=== PATIENT | female | born 1965 | race Caucasian/White ===

== ENCOUNTER 2020-04-28 10:12 | Day surgery (SDC) | payer BC, OTHER ==
[~2020-04-28] VITALS: Ht 172.7 cm; Wt 89.9 kg
[~2020-04-28 10:12] MED LIST: CALC-534 PO; CETI10TA76 PO; CHOL40002 PO; CYAN100072 PO; DICL75TA3 PO; DULO60CA7 PO; ESTR1CAP PO; FLAX1CAP PO; MULT-658 PO
[2020-04-28 10:47] VITALS: BP 129/84
[2020-04-28] MEDS ORDERED: CHLORHEXIDINE 15 ML UDC ONE (10:54)
[2020-04-28] MEDS ORDERED: CHLORHEXIDINE 15 ML UDC MM ONE (11:00)
[2020-04-28] MEDS ORDERED: LACTATED RINGERS 1,000 ML IV SCH (11:00)
[2020-04-28] MEDS ORDERED: BUPIVACAINE/PF 0.25% ONE (11:43)
[2020-04-28] MEDS ORDERED: FLUORESCEIN SODIUM 500 MG/5 ML ONE (11:43)
[2020-04-28] MEDS ORDERED: EPINEPHRINE 1 MG/ML, 1ML ONE (11:43)
[2020-04-28] MEDS ORDERED: MIDAZOLAM 1 MG/ML, 2ML ONE (12:49)
[2020-04-28] MEDS ORDERED: FENTANYL PF 250 MCG/5ML ONE ×2 (12:50→13:50)
[2020-04-28] MEDS ORDERED: hydrALAzine 20 MG/ML, 1ML IV PRN (14:00)
[2020-04-28] MEDS ORDERED: HYDROmorphone 1 MG/ML, 1ML INJ IVPush PRN (14:00)
[2020-04-28] MEDS ORDERED: ONDANSETRON 2MG/ML, 2ML IVPush PRN (14:00)
[2020-04-28] MEDS ORDERED: OXYcodone 5 MG/5 ML ORAL.SOL UDC PO PRN (14:00)
[2020-04-28] MEDS ORDERED: FENTANYL PF 100 MCG/2ML IV PRN (14:00)
[2020-04-28] MEDS ORDERED: PROMETHAZINE 25 MG/ML, 1ML IVPush PRN (14:00)
[2020-04-28] MEDS ORDERED: MEPERIDINE/PF 25MG/0.5ML IVPush PRN (14:00)
[2020-04-28] MEDS ORDERED: LORazepam 2 MG/ML, 1ML IVPush PRN (14:00)
[2020-04-28] MEDS ORDERED: EPHEDRINE 50 MG/ML, 1ML IVPush PRN (14:00)
[2020-04-28] MEDS ORDERED: LABETALOL 5MG/ML, 20ML IV PRN (14:00)
[2020-04-28] MEDS ORDERED: METHOCARBAMOL 1,000 MG in DEXTROSE 5% 100 ML IV PRN (14:00)
[2020-04-28] MEDS ORDERED: ACETAMINOPHEN 325 MG TABLET PO PRN (14:00)
[2020-04-28] MEDS ORDERED: ONDANSETRON 2MG/ML, 2ML ONE (14:37)
[2020-04-28] MEDS ORDERED: NEOSTIGMINE 1 MG/ML, 10ML ONE (14:37)
[2020-04-28] MEDS ORDERED: PROPOFOL 10 MG/ML, 20ML ONE (14:37)
[2020-04-28] MEDS ORDERED: ROCURONIUM 10MG/ML,5ML ONE (14:37)
[2020-04-28] MEDS ORDERED: DEXAMETHASONE 4 MG/ML, 1ML ONE (14:37)
[2020-04-28] MEDS ORDERED: CEFAZOLIN 1,000 MG ONE (14:37)
[2020-04-28] MEDS ORDERED: SUCCINYLCHOLINE 20 MG/ML, 10ML ONE (14:37)
[2020-04-28] MEDS ORDERED: GLYCOPYRROLATE 0.2MG/1ML, 5ML ONE (14:37)
[2020-04-28 18:03] LABS: BASOPHILS % (AUTO) 0 % (0-1); EOSINOPHILS % (AUTO) 0 % (1-7); LYMPHOCYTES % (AUTO) 7 % (22-44); MEAN CORPUSCULAR HGB CONC 33.8 g/dL (32.4-35.8); MEAN PLATELET VOLUME 7.6 fL (7.4-10.4); MONOCYTES % (AUTO) 2 % (2-9); NEUTROPHILS % (AUTO) 91 % (42-75); PLATELET COUNT 292 x10^3/uL (130-400); RED BLOOD COUNT 4.49 x10^6/uL (3.82-5.3); RED CELL DISTRIBUTION WIDTH 12.8 % (9.6-15.2)
[2020-04-28 18:37] LABS: MD SCAN
== END 2020-04-28 19:30 | disposition home or self-care (01) ==
LOC: OUT 10:12
PROVIDERS: ATTEND Obstetrics & Gynecology
DX: N95.0 Postmenopausal bleeding (principal); N80.0 Endometriosis of uterus; D25.9 Leiomyoma of uterus, unspecified; F32.9 Major depressive disorder, single episode, unspecified; M19.90 Unspecified osteoarthritis, unspecified site; Z79.899 Other long term (current) drug therapy; Z98.890 Other specified postprocedural states; Z72.89 Other problems related to lifestyle
CPT/HCPCS: 36415; 58552; 85025; 86850; 86900; 88307; J0171; J0330; J0690; J1100; J2250; J2405; J2704; J2710; J3010; J7120